=== PATIENT | male | born 1995 | race Caucasian/White ===

== ENCOUNTER 2017-05-07 18:07 | Emergency (ER) | payer BC ==
[2017-05-07 18:22] VITALS: BP 148/100
--- NOTE | 2017-05-07 18:32 | UC ---
Head Injury HPI - HPI Summary HPI Summary: 21 YEAR OLD MALE PRESENTS WITH HEAD INJURY, HEAD LACERATION AND LOSS OF CONSCIOUSNESS. - History Of Current Complaint Chief Complaint: UCHeadInjury Stated Complaint: HEAD INJURY Time Seen by Provider: 05/07/17 18:31 Hx Obtained From: Patient Onset/Duration: Sudden Onset Severity Currently: Moderate Severity Initially: Moderate Pain Scale Used: 0-10 Numeric - 8 - Allergies/Home Medications Allergies/Adverse Reactions: Allergies Allergy/AdvReac Type Severity Reaction Status Date / Time No Known Allergies Allergy Verified 05/07/17 18:23 PMH/Surg Hx/FS Hx/Imm Hx Previously Healthy: Yes - Surgical History Surgical History: None - Social History Alcohol Use: None Substance Use Type: None Smoking Status (MU): Never Smoked Tobacco Review of Systems Constitutional: Negative Skin: Other - HEAD LACERATION Eyes: Negative ENT: Negative Respiratory: Negative Cardiovascular: Negative Gastrointestinal: Negative Genitourinary: Negative Motor: Negative Neurovascular: Negative Musculoskeletal: Negative Neurological: Headache Psychological: Negative All Other Systems Reviewed And Are Negative: Yes Physical Exam Triage Information Reviewed: Yes Appearance: Well-Appearing Vital Signs: Initial Vital Signs Temp 36.6 C 05/07/17 18:17 Pulse 100 05/07/17 18:17 Resp 15 05/07/17 18:17 BP 148/100 05/07/17 18:17 Pulse Ox 100 05/07/17 18:17 Vital Signs Reviewed: Yes Eye Exam: Normal ENT Exam: Normal Dental Exam: Normal Neck exam: Normal Neck: Positive: 1 Respiratory Exam: Normal Cardiovascular Exam: Normal Abdominal Exam: Normal Musculoskeletal Exam: Normal Neurological Exam: Normal Psychological Exam: Normal Skin Exam: Normal Head Injury Course/Dx - Differential Dx/Diagnosis Provider Diagnoses: head injury. concussion. abrasion Discharge - Discharge Plan Condition: Stable Disposition: OTHER Discharge Disposition Comment: patient suggested to go to the er for traumatic brain injury Patient Education Materials: Concussion (ED), Head Injury in Children (ED) Referrals: Non Staff,Doctor [Primary Care Provider] - Additional Instructions: patient suggested to go to the er for head trauma/concussion/LOC.
== END 2017-05-07 18:45 ==
LOC: EDBD → UCEAST 18:07
DX: S06.0X9A Concussion with loss of consciousness of unspecified duration, initial encounter (principal); S00.91XA Abrasion of unspecified part of head, initial encounter; X58.XXXA Exposure to other specified factors, initial encounter; Y93.9 Activity, unspecified; Y92.9 Unspecified place or not applicable
CPT/HCPCS: 99202; G0463

== ENCOUNTER 2018-05-06 10:16 | Emergency (ER) | payer BC ==
[2018-05-06 12:40] LABS: ABS Basophils 0 10^3/ul (0-0.2); ABS Eosinophils 0 10^3/ul (0-0.6); ABS Lymphocytes 1.1 10^3/ul (1.0-4.8); ABS Monocytes 0.9 10^3/ul (0-0.8); ABS Neutrophils 5.9 10^3/ul (1.5-7.7); ABS Nucleated RBC 0 10^3/ul; Eosinophil % 0.3 % (0-6); Hematocrit 43 % (42-52); Hemoglobin 14.1 g/dl (14.0-18.0); Lymphocyte % 14.3 % (25-47); Mean Corpuscular HGB Conc 33 g/dl (31-36); Mean Corpuscular Hemoglobin 31 pg (27-31); Mean Corpuscular Volume 95 fL (80-94); Nucleated Red Blood Cells % 0; Platelet Count 177 10^3/ul (150-450); Red Cell Distribution Width 13 % (10.5-15)
[2018-05-06 12:54] LABS: EGFR Non-African American 85.3 (>60)
[2018-05-06] MEDS ORDERED: Ibuprofen TAB* 800 MG PO ONE (13:27)
--- NOTE | 2018-05-06 14:51 | RAD ---
INDICATION: Right knee swelling. TECHNIQUE: 4 views of the right knee were obtained. FINDINGS: There is anterior soft tissue swelling. There is a small joint effusion present. No fracture or significant focal osseous abnormality is seen. Joint spaces appear maintained. IMPRESSION: ANTERIOR SOFT TISSUE SWELLING AND SMALL JOINT EFFUSION.
--- NOTE | 2018-05-06 14:53 | ED ---
Lower Extremity - HPI Summary HPI Summary: Patient presents with abrupt onset right knee pain and swelling that started last night. This has gotten progressively worse this morning. He reports it is hot, tender to touch and painful with movement. He has also had upper respiratory symptoms over the past couple days including but not limited to sore throat, chills, nasal congestion. Denies rash on his body otherwise and has been eating and drinking without difficulty - denies chest pain, SOB, nausea , vomiting, ab pain, diarrhea. He has not had any pain medication prior to arrival. 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 He does wear kneepads and recently had an MCL sprain of his right knee about a month and a half ago. He was told this was a partial tear after an MRI. He rested and rehabbed his knee and has been back to wrestling for couple of weeks now without pain. Denies acute injury last night. He has been followed by his marine animal trainer there. He reports the pain in his Rt knee today feels different than his MCL tear. No skin injuries over the area and no h /o MRSA. Denies h/o strep or STD's and does not feel he has an STD at this time - has not been sexually active "in a while" and denies dysuria, lesions, testicular pain/swelling or penile d/c. Also denies known h/o tick bite or Lyme dz but being on [facility], a tick bite cannot be ruled out but no EM to speak of. NOTE: AT arrived to ED later in visit - reports he was also concerned about septic joint but admits other teammates have had URI sx also. - History of Current Complaint Chief Complaint: EDExtremityLower Stated Complaint: POSS INFECTION Time Seen by Provider: 05/06/18 11:47 Hx Obtained From: Patient, Family/Seamstress Fitter - teammate Pain Intensity: 8 - Allergies/Home Medications Allergies/Adverse Reactions: Allergies Allergy/AdvReac Type Severity Reaction Status Date / Time No Known Allergies Allergy Verified 05/06/18 11:02 PMH/Surg Hx/FS Hx/Imm Hx Previously Healthy: Yes Endocrine/Hematology History: Denies: Hx Anticoagulant Therapy, Hx Blood Disorders, Hx Diabetes, Autoimmune Disease - Immunization History Immunizations Up to Date: Yes Infectious Disease History: No Infectious Disease History: Denies: History Other Infectious Disease, Traveled Outside the [place] in Last 30 Days - Family History Known Family History: Positive: Cardiac Disease, Hypertension - Social History Occupation: Student Lives: Dormitory/Roommates Alcohol Use: None Hx Substance Use: No Substance Use Type: Reports: None Hx Tobacco Use: No Smoking Status (MU): Never Smoked Tobacco Review of Systems Constitutional: Negative Positive: Chills Eyes: Negative Positive: Sore Throat, Nasal Discharge. Negative: Ear Ache Cardiovascular: Negative Respiratory: Negative Gastrointestinal: Negative Positive: no symptoms reported Positive: Arthralgia, Decreased ROM, Edema Skin: Other - Rt knee redness, swelling, pain, warmth to touch Neurological: Negative Negative: Headache Psychological: Normal All Other Systems Reviewed And Are Negative: Yes Physical Exam Triage Information Reviewed: Yes Vital Signs On Initial Exam: Initial Vitals Temp Pulse Resp BP Pulse Ox 99.0 F 60 16 119/49 99 05/06/18 10:58 05/06/18 10:58 05/06/18 10:58 05/06/18 10:58 05/06/18 10:58 Vital Signs Reviewed: Yes Appearance: Positive: Well-Nourished, Ill-Appearing - appears mildly ill - wearing a hoodie and winter jacket while sitting in fast track - reports he feels comfortable in this clothing Skin: Positive: Warm, Skin Color Reflects Adequate Perfusion, Dry - Rt anterior knee w/ mild erythema but obvious edema, warmth to touch and tenderness over boggy areas - no streaking, no lesions, no skin breakdown, Other - no EM rash observed otherwise Head/Face: Positive: Normal Head/Face Inspection Eyes: Positive: Normal, EOMI, GURVINDER, Conjunctiva Clear ENT: Positive: Hearing grossly normal, Pharynx normal - mucosa moist, mild erythema w/ cobblestoning and a few patechial spots on hard palate, TMs normal, Uvula midline, Other - signs of previously healed/scarred auricular hematomas. Negative: Tonsillar swelling, Tonsillar exudate, Trismus, Muffled voice, Hoarse voice Neck: Positive: Supple, Nontender, Enlarged Nodes @ - B/L deep SCM's are full/ spongy but NTTP and no discrete LN's appreciated - no neck stiffness or rigidity Respiratory/Lung Sounds: Positive: Clear to Auscultation, Breath Sounds Present. Negative: Rales, Rhonchi, Wheezes Cardiovascular: Positive: Normal, RRR, Pulses are Symmetrical in both Upper and Lower Extremities, S1, S2. Negative: Leg Edema Left, Leg Edema Right - no calf pain or tenderness Abdomen Description: Positive: Nontender, No Organomegaly, Soft Bowel Sounds: Positive: Present Musculoskeletal: Positive: Limited @ - Can flex and extend but end ranges of Rt knee limited d/t pain - can move toes, ankle and hip w/o pain or difficulty, Pain @ - Rt anterior knee TTP as mentioned above - most tender over anterior tibial plateau - joint spaces are NTTP and no laxity appreciated w/ special tests Neurological: Positive: Normal, Sensory/Motor Intact, Alert, Oriented to Person Place, Time, CN Intact II-III Psychiatric: Positive: Normal - concerned but cooperative Diagnostics - Vital Signs Vital Signs Temp Pulse Resp BP Pulse Ox 05/06/18 10:58 99.0 F 60 16 119/49 99 - Laboratory Lab Results: Lab Results 05/06/18 05/06/18 05/06/18 Range/Units 12:24 12:24 12:24 WBC 8.0 (3.5-10.8) 10^3/ul RBC 4.50 (4.00-5.40) 10^6/ul Hgb 14.1 (14.0-18.0) g/dl Hct 43 (42-52) % MCV 95 H (80-94) fL MCH 31 (27-31) pg MCHC 33 (31-36) g/dl RDW 13 (10.5-15) % Plt Count 177 (150-450) 10^3/ul MPV 10.0 (7.4-10.4) um3 Neut % (Auto) 73.8 (38-83) % Lymph % (Auto) 14.3 L (25-47) % Henderson % (Auto) 11.4 H (0-7) % Eos % (Auto) 0.3 (0-6) % Baso % (Auto) 0.2 (0-2) % Absolute Neuts (auto) 5.9 (1.5-7.7) 10^3/ul Absolute Lymphs (auto) 1.1 (1.0-4.8) 10^3/ul Absolute Monos (auto) 0.9 H (0-0.8) 10^3/ul Absolute Eos (auto) 0 (0-0.6) 10^3/ul Absolute Basos (auto) 0 (0-0.2) 10^3/ul Absolute Nucleated RBC 0 10^3/ul Nucleated RBC % 0 ESR 18 H (0-14) mm/Hr Sodium 132 L (135-145) mmol/L Potassium 4.6 (3.5-5.0) mmol/L Chloride 98 L (101-111) mmol/L Carbon Dioxide 28 (22-32) mmol/L Anion Gap 6 (2-11) mmol/L BUN 23 (6-24) mg/dL Creatinine 1.10 (0.67-1.17) mg/dL Est GFR ( Amer) 103.3 (>60) Est GFR (Non-Af Amer) 85.3 (>60) BUN/Creatinine Ratio 20.9 H (8-20) Glucose 92 (70-100) mg/dL Lactic Acid 0.7 (0.5-2.0) mmol/L Calcium 9.7 (8.6-10.3) mg/dL Total Bilirubin 0.80 (0.2-1.0) mg/dL AST 46 H (13-39) U/L ALT 36 (7-52) U/L Alkaline Phosphatase 141 H (34-104) U/L C-Reactive Protein 6.76 (<8.01) mg/L Total Protein 7.4 (6.4-8.9) g/dL Albumin 4.6 (3.2-5.2) g/dL Globulin 2.8 (2-4) g/dL Albumin/Globulin Ratio 1.6 (1-3) Group A Strep Rapid (Negative) 05/06/18 Range/Units 14:06 WBC (3.5-10.8) 10^3/ul RBC (4.00-5.40) 10^6/ul Hgb (14.0-18.0) g/dl Hct (42-52) % MCV (80-94) fL MCH (27-31) pg MCHC (31-36) g/dl RDW (10.5-15) % Plt Count (150-450) 10^3/ul MPV (7.4-10.4) um3 Neut % (Auto) (38-83) % Lymph % (Auto) (25-47) % Henderson % (Auto) (0-7) % Eos % (Auto) (0-6) % Baso % (Auto) (0-2) % Absolute Neuts (auto) (1.5-7.7) 10^3/ul Absolute Lymphs (auto) (1.0-4.8) 10^3/ul Absolute Monos (auto) (0-0.8) 10^3/ul Absolute Eos (auto) (0-0.6) 10^3/ul Absolute Basos (auto) (0-0.2) 10^3/ul Absolute Nucleated RBC 10^3/ul Nucleated RBC % ESR (0-14) mm/Hr Sodium (135-145) mmol/L Potassium (3.5-5.0) mmol/L Chloride (101-111) mmol/L Carbon Dioxide (22-32) mmol/L Anion Gap (2-11) mmol/L BUN (6-24) mg/dL Creatinine (0.67-1.17) mg/dL Est GFR ( Amer) (>60) Est GFR (Non-Af Amer) (>60) BUN/Creatinine Ratio (8-20) Glucose (70-100) mg/dL Lactic Acid (0.5-2.0) mmol/L Calcium (8.6-10.3) mg/dL Total Bilirubin (0.2-1.0) mg/dL AST (13-39) U/L ALT (7-52) U/L Alkaline Phosphatase (34-104) U/L C-Reactive Protein (<8.01) mg/L Total Protein (6.4-8.9) g/dL Albumin (3.2-5.2) g/dL Globulin (2-4) g/dL Albumin/Globulin Ratio (1-3) Group A Strep Rapid Negative (Negative) Result Diagrams: 05/06/18 12:24 05/06/18 12:24 Lab Statement: Any lab studies that have been ordered have been reviewed, and results considered in the medical decision making process. Re-Evaluation - Re-Evaluation First Eval Change: Improved - pain improved and pt broke a sweat after taking ibuprofen Lower Extremity Course/Dx - Course Course Of Treatment: Pt presents w/ abrupt onset Rt knee pain, redness and swelling since last night after wrestling practice - worse this morning. He has preceeding URI sx that started a few days ago. See HPI for details. Other than recent MCL partial tear, no other medical hx to report. Vitals: WNL. LABS: WNL except slightly elevated ESR 18. Lyme serology will not return for a week or so but pt is aware he is being tested for this. Blood cx's were drawn as well. Strep: neg. STD testing: swab - pending; urine - pending. D/t recent MCL injury, an XR was obtained. Clinical presentation is low suspicion for tendon/ligament injury d/t no laxity and pt reports this feels different, but ortho injury cannot be ruled out completely. XR reveals anterior soft tissue swelling and small joint effusion. This could correlate w/ prepatellar bursitis as his anterior knee is swollen and inflammed - no popliteal swelling or tenderness appreciated. Consult out to Dr. Palmer - discussed need to aspirate vs. tx and observe - he feels the latter sounds most appropriate. Will start bactrim for coverage against MSSA, MRSA NSAID's and close f/u w/ AT who is here w/ him tonight. He is also aware some tests are still pending. Pt has been following w/ Dr. Bertrand for his knee injury and will call her tomorrow for f/u. He is aware of danger s/sx of when to return to the ED. Spoke w/ father via phone as well who is aware of and agrees w/ plan. Pt and support team aware of diff dx: early infectious arthritis, bursitis + URI. - Diagnoses Provider Diagnoses: Right knee pain, Flu-like symptoms Discharge - Sign-Out/Discharge Documenting (check all that apply): Patient Departure - Discharge Plan Condition: Stable Disposition: HOME Prescriptions: Ibuprofen TAB* [Motrin TAB* 800 MG] 800 mg PO Q8HR PRN #20 tab PRN Reason: Pain Sulfamethox/Trimethoprim DS* [Bactrim DS 800/160 TAB*] 1 tab PO BID #20 tab Patient Education Materials: Viral Syndrome (ED), Swollen Joint (ED) Forms: *School Release Referrals: [facility] - Ronna LOZANOll [Medical Doctor] - Additional Instructions: The definitive cause of your Right knee pain and swelling was not identified today however you may have a bursitis versus an infection here. You were provided with antibiotics and anti-inflammatories - you may alternate with acetaminophen as needed for pain. Follow-up closely tomorrow with Dr. Bertrand for re-evaluation and review of labs that were not yet available today (ie. blood cultures, urine cultures, throat culture, etc). *If in the meantime you feel worse, return to the ED. You may also have a viral illness. Implement supportive care as in education packet. If your labs return with other results that require additional medication, you will be notified. - Billing Disposition and Condition Condition: STABLE Disposition: Home
[2018-05-06 16:16] VITALS: BP 118/70
[2018-05-08 23:44] LABS: N. gonorrhoeae Source THROAT
== END 2018-05-06 16:13 | disposition home or self-care (01) ==
LOC: ED 10:16
DX: M25.561 Pain in right knee (principal); J11.1 Influenza due to unidentified influenza virus with other respiratory manifestations
CPT/HCPCS: 36415; 80053; 83605; 85025; 85652; 86140; 86308; 86618; 87040; 87491; 87591; 87651; 99282; A9270-GY

== ENCOUNTER 2018-05-21 18:54 | Emergency (ER) | payer BC ==
--- OUTSIDE RECORDS SUMMARY | 2018-05-21 19:11 | XMS REPORT ---
:1995 External Reference #:[id number] Author Organization [facility] Address [address] [place] [address] Phone [phone] Care Team Providers Name Role Phone [facility]ly [facility] Primary Care Physician Unavailable Payers Type Date Identification Numbers Payment Provider Subscriber Health Maintenance Policy Number: [facility] Bernardo Diaz [facility] (O) [id number] PayID: [id number] [address] [address] [place] [address] Commercial Policy Number: [id number] Clinical Recruiter Bj Diaz Group Name: Wrestling Attn: [place] [employer] PayID: [id number] [address] [place] [address] Problems Description No Information Family History Date Family Member(s) Problem(s) Comments Father Heart Disease Mother Heart Disease Social History Type Date Description Comments Lives With Alone Occupation Student ETOH Use Denies alcohol use Smoking Patient has never smoked Exercise Type/Frequency Exercises regularly Allergies, Adverse Reactions, Alerts Date Description Reaction Status Severity Comments 05/10/2018 NKDA active Medications Medication Date Status Form Strength Qnty SIG Indications Ordering Provider Ibuprofen Active Tablets 800mg 1 tab by Unknown mouth twice daily Bactrim Active Tablets 1 by mouth Unknown twice a day Results Description No Information Procedures Description No Information Plan of Care No Information Available
--- NOTE | 2018-05-21 20:42 | ED ---
Lower Extremity - HPI Summary HPI Summary: This patient is a 22 year old M presenting to ED with a chief complaint of R knee swelling and erythema with pain since last night. The patient reports he popped his bursa sac 2 weeks ago and was put on abx. The patient rates the pain 5/10 in severity. Symptoms aggravated by nothing. Symptoms alleviated by nothing. - History of Current Complaint Chief Complaint: EDExtremityLower Stated Complaint: POSS INFECTION Time Seen by Provider: 05/21/18 20:21 Hx Obtained From: Patient Onset of Pain: Immediate, Days - since last night Onset/Duration: Still Present Severity Initially: Moderate Severity Currently: Moderate Pain Intensity: 5 Pain Scale Used: 0-10 Numeric Timing: Constant, Lasting Days - since last night Location: Is Discrete @ - R knee Associated Signs And Symptoms: Positive: Swelling, Redness, Knee Pain Aggravating Factor(s): Nothing Alleviating Factor(s): Nothing - Allergies/Home Medications Allergies/Adverse Reactions: Allergies Allergy/AdvReac Type Severity Reaction Status Date / Time No Known Allergies Allergy Verified 05/06/18 11:02 PMH/Surg Hx/FS Hx/Imm Hx Endocrine/Hematology History: Denies: Hx Anticoagulant Therapy, Hx Blood Disorders, Hx Diabetes Musculoskeletal History: Reports: Other Musculoskeletal History - popped his bursa sac Infectious Disease History: No Infectious Disease History: Denies: History Other Infectious Disease, Traveled Outside the [place] in Last 30 Days - Family History Known Family History: Positive: Cardiac Disease, Hypertension - Social History Alcohol Use: None Hx Substance Use: No Substance Use Type: Reports: None Hx Tobacco Use: No Smoking Status (MU): Never Smoked Tobacco Review of Systems Negative: Fever Positive: Other - R knee swelling and erythema with pain; popped his bursa sac 2 weeks ago in the R knee All Other Systems Reviewed And Are Negative: Yes Physical Exam - Summary Physical Exam Summary: VITAL SIGNS: Reviewed. GENERAL: Patient is a well-developed and nourished MALE who is lying comfortable in the stretcher. Patient is not in any acute respiratory distress. HEAD AND FACE: No signs of trauma. No ecchymosis, hematomas or skull depressions. No sinus tenderness. EYES: PERRLA, EOMI x 2, No injected conjunctiva, no nystagmus. EARS: Hearing grossly intact. Ear canals and tympanic membranes are within normal limits. MOUTH: Oropharynx within normal limits. NECK: Supple, trachea is midline, no adenopathy, no JVD, no carotid bruit, no c- spine tenderness, neck with full ROM. CHEST: Symmetric, no tenderness at palpation LUNGS: Clear to auscultation bilaterally. No wheezing or crackles. CVS: Regular rate and rhythm, S1 and S2 present, no murmurs or gallops appreciated. ABDOMEN: Soft, non-tender. No signs of distention. No rebound no guarding, and no masses palpated. Bowel sounds are normal. EXTREMITIES: FROM in all major joints, no cyanosis or clubbing. Patient has redness, warmness, mild tenderness over the R knee with fluctuation. Consistent with prepatellar bursitis. NEURO: Alert and oriented x 3. No acute neurological deficits. Speech is normal and follows commands. SKIN: Dry and warm Triage Information Reviewed: Yes Vital Signs On Initial Exam: Initial Vitals Temp Pulse Resp BP Pulse Ox 97.7 F 48 16 119/50 100 05/21/18 19:03 05/21/18 19:03 05/21/18 19:03 05/21/18 19:03 05/21/18 19:03 Vital Signs Reviewed: Yes Diagnostics - Vital Signs Vital Signs Temp Pulse Resp BP Pulse Ox 05/21/18 19:03 97.7 F 48 16 119/50 100 - Laboratory Lab Statement: Any lab studies that have been ordered have been reviewed, and results considered in the medical decision making process. Re-Evaluation - Re-Evaluation First Eval Re-Evaluation Time: 20:54 Comment: Discussed with patient about plan for discharge and plan for the patient to see Dr. Farah in her office tomorrow. Lower Extremity Course/Dx - Course Assessment/Plan: This patient is a 22 year old M presenting to ED with a chief complaint of R knee swelling and erythema with pain since last night. The patient reports he popped his bursa sac 2 weeks ago and was put on abx. Consulted with Dr. Farah about the patients case. 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 Therefore, we will discharge the patient with dx of prepatellar bursitis and instructions to follow up with Dr. Farah tomorrow. The patient has ibuprofen at home which he has been taking and it helps the pain. - Diagnoses Provider Diagnoses: Prepatellar bursitis - Physician Notifications Discussed Care Of Patient With: Venu Farah Time Discussed With Above Provider: 20:52 Instructed by Provider To: Other - Consulted Dr. Farah about the patient's case and she said that the patient wrestles at [employer] and they dont like to aspirate in the middle of wrestling season. The patient can follow up with her in her office tomorrow. Discharge - Sign-Out/Discharge Documenting (check all that apply): Patient Departure - discharge - Discharge Plan Condition: Stable Disposition: HOME Patient Education Materials: Knee Bursitis (ED) Referrals: Venu Farah MD [Medical Doctor] - (See in her office tomorrow.) Additional Instructions: RETURN TO THE EMERGENCY DEPARTMENT FOR CHANGING OR WORSENING SYMPTOMS. FOLLOW UP WITH DR. FARAH TOMORROW. - Attestation Statements Document Initiated by Scribe: Yes Documenting Scribe: Hugo Horne Provider For Whom Scribe is Documenting (Include Credential): Abby Ochoa MD Scribe Attestation: Hugo Saba, scribed for Abby Ochoa MD on 05/21/18 at 2100.
[2018-05-21] MEDS ORDERED: Lidocaine 2% EPI 1:200000 MPF*10-20 ML VIAL ONE (20:43)
[2018-05-21 21:03] VITALS: BP 104/68
== END 2018-05-21 21:03 | disposition home or self-care (01) ==
LOC: ED 18:54
DX: R60.0 Localized edema (principal); M70.41 Prepatellar bursitis, right knee
CPT/HCPCS: 99281

== ENCOUNTER 2018-09-17 13:41 | Day surgery (SDC) | payer BC ==
[~2018-09-17 13:41] MED LIST: Acetaminophen TAB* 325 MG PO ONE; Buffered Lidocaine 1% SYRIN* 1 ML/SYRINGE INTRADERM ONE; Dexamethasone IV* 4 MG/ML 1 ML (4 MG) IV SLOW PU ONE; Famotidine IV* 10 MG/ML 2 ML (20 mg) IV ONE; Gabapentin CAP(*) 300 MG PO ONE; Lactated Ringers 1000 ML Bag* 1,000 ML IV SCH; Lidocaine 2% PF * 5 ML VIAL ONE; Midazolam* 1 MG/ML 2 ML VIAL (2 MG) ONE; Propofol* 10 MG/ML 20 ML BTL ONE; celeCOXIB CAP* 200 MG PO ONE; fentaNYL* 50 MCG/ML 5 ML VIAL (250 MCG VIAL) ONE
[2018-09-17] MEDS ORDERED: Dexamethasone IV* 4 MG/ML 1 ML (4 MG) ONE (14:06)
[2018-09-17] MEDS ORDERED: Gabapentin CAP(*) 300 MG ONE (14:07)
[2018-09-17] MEDS ORDERED: Acetaminophen TAB* 325 MG ONE (14:07)
[2018-09-17] MEDS ORDERED: celeCOXIB CAP* 100 MG ONE (14:07)
[2018-09-17] MEDS ORDERED: ceFAZolin 2 GM in NS PREMIX(*) 2 GM/100 ML BAG IVPB ONE (14:08)
[2018-09-17] MEDS ORDERED: Famotidine IV* 10 MG/ML 2 ML (20 mg) ONE (14:08)
[2018-09-17] MEDS ORDERED: Buffered Lidocaine 1% SYRIN* 1 ML/SYRINGE INTRADERM ONE (14:08)
[2018-09-17] MEDS ORDERED: HYDROcodone/ACETAMIN 5-325 MG* 1 TAB PO PRN (14:31)
[2018-09-17] MEDS ORDERED: Morphine VIAL* 4 MG/ML VIAL (1 ml vial) IV PRN (14:31)
[2018-09-17] MEDS ORDERED: Ketorolac INJ* 30 MG/ML 1 ML VIAL IV PRN (14:31)
[2018-09-17] MEDS ORDERED: DiMENhydriNATE IV* 50 MG/ML VIAL IV PUSH PRN (14:31)
[2018-09-17] MEDS ORDERED: Naloxone* 0.4 MG/ML 1 ML VIAL IV PRN (14:31)
[2018-09-17] MEDS ORDERED: fentaNYL* 50 MCG/ML 2 ML VIAL (100 MCG VIAL) IV PRN (14:31)
[2018-09-17] MEDS ORDERED: Ropivacaine* 2 MG/ML 20 ML VIAL (0.2%) ONE (14:34)
[2018-09-17] MEDS ORDERED: Lidocaine 1% MPF wEPI 200,000* 30 ML SDV ONE (14:34)
[2018-09-17] MEDS ORDERED: Ondansetron INJ* 2 MG/ML VIAL ONE (15:37)
[2018-09-17 17:29] VITALS: BP 125/57
--- NOTE | 2018-09-18 03:47 | OP ---
CC: [facility] * DATE OF OPERATION: 09/17/18 - [facility] DATE OF : 89 SURGEON: Venu Bertrand MD LIFE SKILLS WORKER: CHHAYA Mario. An high school assistant football coach was needed for the entirety of the case to help with positioning, retraction and utilized throughout all portions of the case. ANESTHESIOLOGIST: Dr. Paul. PRE-OP DIAGNOSIS: Right knee prepatellar bursitis, recalcitrant. POST-OP DIAGNOSIS: Right knee prepatellar bursitis, recalcitrant. OPERATIVE PROCEDURE: Right knee prepatellar bursectomy. COMPLICATIONS: None. ESTIMATED BLOOD LOSS: Minimal. TOURNIQUET TIME: 48 minutes at 250 mmHg. 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 He has failed significant compression and injections and has elected to proceed with surgical treatment. The risks and benefits of the surgery were discussed at length and included but not limited to bleeding, infection, damage to nerves , vessels, surrounding structures, wound nonhealing, persistent pain, need for further surgery, scarring, stiffness, incomplete relief of symptoms, risks of anesthesia, and he has elected to proceed with surgical treatment. DESCRIPTION OF PROCEDURE: The patient was greeted in the preoperative area by the attending surgeon. The correct extremity was marked and consent was confirmed. The patient was brought back to the operating suite and placed in supine position on the operating table. He then underwent general anaesthesia, endotracheal and LMA intubation. After which, an unsterile tourniquet was placed high on the proximal thigh. The right leg was prepped and draped in the usual sterile fashion using chlorhexidine soap, scrub, and alcohol wipe and a final prep with ChloraPrep. After appropriate surgical pause, indicating site, side, procedure and administration of antibiotics, a superior medial parapatellar incision was made in the skin only. Soft tissues were carefully exposed. The bursa was readily available at that point. This was then carefully released. The care was taken not to damage the skin, although some areas of skin was very thin. The bursa was very adherent to the skin. There is a large bursal space that was debrided back using the Bovie, the #15 blade, and the rongeur. Once bursal pieces and loose tissue was then carefully removed that was aggravating the knee all throughout the knee laterally, medially and superiorly and inferiorly. The rasp and the rongeur was then used to rough up the tissue to try to get this ___ ___ back. The knee was then irrigated and any loose debris that was identified or any bursal tissue was removed again. After full bursectomy was done, the tourniquet was deflated and hemostasis was obtained to make sure that this will not fill back up with hematoma or scar tissue. The wound was then copiously irrigated with sterile saline. The skin was closed in layers with 3-0 Monocryl and 3-0 nylon. Sterile dressings were applied as well as compressive dressings and an ice machine. He was then awoken from anesthesia and transferred to PACU in stable condition. PREOPERATIVE PLAN: He will be weightbearing as tolerated. Range of motion as tolerated. He will do compressive dressing until postop day 3 and will be discharged on pain medication. DVT prophylaxis was considered, but deferred due to no previous personal or family history. I will see the patient back in 10 to 14 days. [id number]/[facility] #: [id number] KATIE
== END 2018-09-17 17:31 | disposition home or self-care (01) ==
LOC: OR 13:41
PROVIDERS: ATTEND Orthopaedic Surgery
DX: M70.41 Prepatellar bursitis, right knee (principal); Z87.442 Personal history of urinary calculi
CPT/HCPCS: A9270-GY; J0690; J1100; J2001; J2250; J2405; J2704; J2795; J3010

== ENCOUNTER 2018-09-19 10:36 | Emergency (ER) | payer BC ==
[2018-09-19 10:48] VITALS: BP 119/58
--- NOTE | 2018-09-19 12:16 | UC ---
General HPI - HPI Summary HPI Summary: Patient had knee surgery 3 days ago without any complications. Using crutches as he is mainly nonweight bearing. He states about 4 days ago he began with a productive cough and congestion. No fever. +sore throat. Nauseated this morning. He did go to class this morning. He called his parents and they said to come to urgent care. No vomiting or diarrhea. No rash. No abdominal pain. Meds: Reviewed. - History of Current Complaint Chief Complaint: UCRespiratory Stated Complaint: CONGESTION Time Seen by Provider: 09/19/18 12:09 Pain Intensity: 6 - Allergy/Home Medications Allergies/Adverse Reactions: Allergies Allergy/AdvReac Type Severity Reaction Status Date / Time No Known Allergies Allergy Verified 09/19/18 10:49 Home Medications: Home Medications Ibuprofen TAB* [Motrin TAB* 800 MG] 800 mg PO BID 09/19/18 [History Confirmed ] PMH/Surg Hx/FS Hx/Imm Hx Previously Healthy: Yes Other History Of: Negative For: Anticoagulant Therapy - Surgical History Surgical History: Yes Surgery Procedure, Year, and Place: right knee surg - Family History Known Family History: Positive: Cardiac Disease, Hypertension - Social History Alcohol Use: Rare Substance Use Type: None Smoking Status (MU): Never Smoked Tobacco Have You Smoked in the Last Year: No Review of Systems All Other Systems Reviewed And Are Negative: Yes ENT: Positive: Sore Throat, Sinus Congestion Respiratory: Positive: Cough Physical Exam Triage Information Reviewed: Yes Appearance: Well-Appearing Vital Signs: Initial Vital Signs Temp 98.5 F 09/19/18 10:46 Pulse 83 09/19/18 10:46 Resp 18 09/19/18 10:46 BP 119/58 09/19/18 10:46 Pulse Ox 100 09/19/18 10:46 Vital Signs Reviewed: Yes Eyes: Positive: Conjunctiva Clear ENT: Positive: Pharyngeal erythema, Nasal congestion, TMs normal Dental Exam: Normal Neck: Positive: Supple, Nontender Respiratory: Positive: Lungs clear, Normal breath sounds Cardiovascular: Positive: RRR, No Murmur Course/Dx - Course Course Of Treatment: This is an otherwise healthy [employer] student who presents with cough and congestion. Assessment. Nontoxic appearing. Dx: Viral Syndrome. Plan. Recommend rest, fluids, ibuprofen as needed for fever/pain. Recommend a decongestant like sudafed for congestion. Recommend a cough suppressant like mucinex for cough. If symptoms persist or worsen, worsening cough or persistent fever, return to urgent care or [facility] - Diagnoses Provider Diagnosis: Viral syndrome Discharge - Sign-Out/Discharge Documenting (check all that apply): Patient Departure All imaging exams completed and their final reports reviewed: No Studies - Discharge Plan Condition: Good Disposition: HOME Patient Education Materials: Viral Syndrome (ED) Referrals: No Primary Care Phys,NOPCP [Primary Care Provider] - Additional Instructions: Recommend rest, fluids, ibuprofen as needed for fever/pain Recommend a decongestant like sudafed for congestion Recommend a cough suppressant like mucinex for cough If symptoms persist or worsen, worsening cough or persistent fever, return to urgent care or [facility] - Billing Disposition and Condition Condition: GOOD Disposition: Home
== END 2018-09-19 12:23 | disposition home or self-care (01) ==
LOC: UCEAST 10:36
DX: B34.9 Viral infection, unspecified (principal); J02.9 Acute pharyngitis, unspecified; R05 Cough; R11.0 Nausea; J34.89 Other specified disorders of nose and nasal sinuses
CPT/HCPCS: 99211; G0463